=== PATIENT | male | born 1945 | race Caucasian/White ===

== ENCOUNTER 2019-12-24 10:06 | Inpatient (IN) ==
[2019-12-24] MEDS ORDERED: CeFAZolin Syr 2,000MG/20 ML 2,000 MG/20 ML SYRINGE IVPB ONE (10:21)
[2019-12-24] MEDS ORDERED: Ringers Solution, Lactated 1,000 ML IVC SCH (10:30)
[2019-12-24] MEDS ORDERED: Gabapentin 300 MG CAPSULE PO ONE (10:42)
[2019-12-24] MEDS ORDERED: Famotidine 20 MG/2 ML VIAL IVP ONE (10:42)
[2019-12-24] MEDS ORDERED: Acetaminophen IV 1,000 MG/100 ML INFUS..BTL IVPB ONE (10:42)
[2019-12-24] MEDS ORDERED: Dexamethasone 4 MG/ML VIAL ONE ×2 (10:43→11:35)
[2019-12-24] MEDS ORDERED: *HR* Succinylcholine 200 MG/10 ML VIAL IVP ONE (10:43)
[2019-12-24] MEDS ORDERED: Ondansetron 4 MG/2 ML VIAL ONE (10:43)
[2019-12-24] MEDS ORDERED: *HR* Propofol 200 MG/20 ML VIAL IVP ONE ×2 (10:43→16:53)
[2019-12-24] MEDS ORDERED: Lidocaine -MPF 2% 2 ML VIAL ONE ×2 (10:43→12:27)
[2019-12-24] MEDS ORDERED: *HR* Rocuronium Bromide 50 MG/5 ML VIAL ONE ×3 (10:43→14:25)
[2019-12-24] MEDS ORDERED: *HR* FentaNYL (PF) 100 MCG/2 ML VIAL ONE ×3 (10:43→13:44)
[2019-12-24] MEDS ORDERED: *HR* EPINEPHrine 1 MG/10 ML SYRINGE ONE (11:12)
[2019-12-24] MEDS ORDERED: *HR* Midazolam HCl 2 MG/2 ML VIAL ONE (12:17)
[2019-12-24] MEDS ORDERED: Heparin 1,000 UNITS/500 mL 0 ML ONE (12:38)
[2019-12-24] MEDS ORDERED: *HR* Vasopressin 20 UNIT/ML VIAL ONE (12:53)
[2019-12-24] MEDS ORDERED: Lidocaine Jelly 6ml 1 APPL/6 ML JEL.PF.APP ONE (12:53)
[2019-12-24] MEDS ORDERED: EPHEDrine 50 MG/ML VIAL ONE (13:37)
[2019-12-24] MEDS ORDERED: *HR* PHENYLEPHRINE 1,000 MCG/10 ML SYRINGE IVP ONE (14:48)
[2019-12-24] MEDS ORDERED: *HR* Dextrose 50 % in Water (Syg) 50 ML SYRINGE IVP PRN (17:16)
[2019-12-24] MEDS ORDERED: Ondansetron 4 MG/2 ML VIAL IVP PRN (17:16)
[2019-12-24] MEDS ORDERED: Morphine Sulfate 2 MG/ML SYRINGE IVP PRN (17:47)
[2019-12-24] MEDS: Insulin Human Regular 100 UNIT in 0.9 % Sodium Chloride 100 ML IVC SCH (18:25)
[2019-12-24] MEDS: 0.9 % Sodium Chloride 1,000 ML IVC SCH (18:26)
[2019-12-24] MEDS: Morphine PCA 30 MG/ 30 ML 30 ML PCA.VIAL IVC PRN (18:26)
[2019-12-24] MEDS ORDERED: 0.9 % Sodium Chloride 500 ML ONE (18:54)
[2019-12-24] MEDS: Ipratropium/Albuterol Neb 3 ML IH SCH ×2 (20:32→23:22)
[2019-12-24] MEDS: *HR* Heparin 5,000 UNIT/ML VIAL SQ SCH (23:11)
[2019-12-25 04:05] LABS: Hematocrit 36.6 % (37.5-50.1); Hemoglobin 12.6 g/dL (12.9-16.9); Mean Corpuscular HGB Conc 34.4 g/dL (31.6-35.5); Mean Corpuscular Hemoglobin 30.6 pg (28.0-33.3); Mean Corpuscular Volume 88.8 fL (83.0-100.0); Mean Platelet Volume 10.3 fL (9.4-12.4); Platelet Count 255 K/mcL (140-400); Red Blood Count 4.12 M/mcL (4.19-5.50); Red Cell Distribution Width 12.4 % (11.5-14.5); White Blood Count 14.3 K/mcL (4.3-11.1)
[2019-12-25] MEDS: Ipratropium/Albuterol Neb 3 ML IH SCH ×5 (04:13→20:16)
[2019-12-25 04:21] LABS: % Iron Saturation 7 % (20-55); BUN/Creatinine Ratio 26 (6-26); Blood Urea Nitrogen 19 mg/dL (8-23); Calcium 7.9 mg/dL (8.6-10.3); Carbon Dioxide 20 mEq/L (23-29); Chloride 109 mEq/L (98-107); Glucose 144 mg/dL (70-105); Iron 20 mcg/dL (65-175); Magnesium 1.7 mg/dL (1.6-2.6); Osmolality,Calculated 285 (280-300); Phosphorous 3.3 mg/dL (2.7-4.5); Potassium 3.8 mEq/L (3.5-5.1); Sodium 135 mEq/L (136-145); Transferrin 219 mg/dL (203-362); eGFR For African Americans > 60 (> 60); eGFR For Non-African Americans > 60 (> 60)
[2019-12-25] MEDS: *HR* Heparin 5,000 UNIT/ML VIAL SQ SCH ×3 (05:55→21:28)
[2019-12-25] MEDS ORDERED: Iron Sucrose Complex 400 MG in 0.9 % Sodium Chloride 250 ML IVPB ONE (07:03)
[2019-12-25] MEDS ORDERED: Potassium Chloride 40 MEQ, Lidocaine 1% 2 ML in 0.9 % Sodium Chloride 500 ML IVPB ONE (07:03)
[2019-12-25] MEDS ORDERED: 0.9 % Sodium Chloride 1,000 ML IVC SCH ×2 (07:17→12:33)
[2019-12-25] MEDS: Insulin Human Regular 100 UNIT in 0.9 % Sodium Chloride 100 ML IVC SCH (09:00)
[2019-12-25] MEDS: Pantoprazole 40 MG VIAL IVP SCH (09:50)
[2019-12-25] MEDS: Morphine PCA 30 MG/ 30 ML 30 ML PCA.VIAL IVC PRN (11:23)
[2019-12-25] MEDS: 0.9 % Sodium Chloride 1,000 ML IVC SCH (11:31)
[2019-12-25] MEDS ORDERED: Furosemide 20 MG/2 ML VIAL IVP ONE ×2 (12:32→12:37)
[2019-12-25 16:27] LABS: ABG Base Excess -4 mEq/L (-2 to 3); ABG HCO3 23 mEq/L (21-27); ABG Oxygen Saturation 85 % (95-98); ABG PCO2 49 mmHg (35-45); ABG PH 7.28 pH Units (7.32-7.45); ABG PO2 57 mmHg (85-104); ABG TCO2 25 mEq/L (20-26)
[2019-12-25 16:45] LABS: Basophils % 0.1 %; Hematocrit 37.6 % (37.5-50.1); Hemoglobin 12.8 g/dL (12.9-16.9); Immature Granulocytes % 0.6 % (0-4); Lymphocytes # 0.7 K/mcL (0.6-4.6); Lymphocytes % 3.6 %; Mean Platelet Volume 9.9 fL (9.4-12.4); Monocytes % 9.6 %; Neutrophils # 17.9 K/mcL (1.6-8.9); Platelet Count 311 K/mcL (140-400); Red Cell Distribution Width 12.8 % (11.5-14.5); Segmented Neutrophils % 86.1 %; White Blood Count 20.8 K/mcL (4.3-11.1)
[2019-12-25 17:04] LABS: BUN/Creatinine Ratio 29 (6-26); Blood Urea Nitrogen 23 mg/dL (8-23); Calcium 8.1 mg/dL (8.6-10.3); Carbon Dioxide 22 mEq/L (23-29); Chloride 109 mEq/L (98-107); Glucose 122 mg/dL (70-105); Osmolality,Calculated 289 (280-300); Potassium 4.4 mEq/L (3.5-5.1); Sodium 137 mEq/L (136-145); eGFR For African Americans > 60 (> 60); eGFR For Non-African Americans > 60 (> 60)
[2019-12-25] MEDS: Piperacillin/Tazobactam 3.375 GM in 0.9 % Sodium Chloride Mini Bag 100 ML IVPB SCH (17:27)
[2019-12-26] MEDS ORDERED: Piperacillin/Tazobactam 3.375 GM in 0.9 % Sodium Chloride Mini Bag 100 ML IVPB SCH
[2019-12-26] MEDS: Ipratropium/Albuterol Neb 3 ML IH SCH ×7 (00:02→23:26)
[2019-12-26] MEDS: Piperacillin/Tazobactam 3.375 GM in 0.9 % Sodium Chloride Mini Bag 100 ML IVPB SCH ×4 (00:04→23:57)
[2019-12-26 03:35] LABS: Hematocrit 34.7 % (37.5-50.1); Hemoglobin 11.6 g/dL (12.9-16.9); Mean Corpuscular HGB Conc 33.4 g/dL (31.6-35.5); Mean Corpuscular Hemoglobin 31.5 pg (28.0-33.3); Mean Corpuscular Volume 94.3 fL (83.0-100.0); Mean Platelet Volume 10.3 fL (9.4-12.4); Platelet Count 284 K/mcL (140-400); Red Blood Count 3.68 M/mcL (4.19-5.50); Red Cell Distribution Width 13.2 % (11.5-14.5); White Blood Count 18.7 K/mcL (4.3-11.1)
[2019-12-26 03:54] LABS: BUN/Creatinine Ratio 31 (6-26); Blood Urea Nitrogen 28 mg/dL (8-23); Calcium 8.3 mg/dL (8.6-10.3); Carbon Dioxide 24 mEq/L (23-29); Chloride 109 mEq/L (98-107); Glucose 163 mg/dL (70-105); Magnesium 2.8 mg/dL (1.6-2.6); Osmolality,Calculated 295 (280-300); Phosphorous 2.1 mg/dL (2.7-4.5); Potassium 4.4 mEq/L (3.5-5.1); Sodium 138 mEq/L (136-145); eGFR For African Americans > 60 (> 60); eGFR For Non-African Americans > 60 (> 60)
[2019-12-26 05:20] LABS: ABG Base Excess 0 mEq/L (-2 to 3); ABG HCO3 24 mEq/L (21-27); ABG Oxygen Saturation 91 % (95-98); ABG PCO2 36 mmHg (35-45); ABG PH 7.43 pH Units (7.32-7.45); ABG PO2 59 mmHg (85-104); ABG TCO2 25 mEq/L (20-26)
[2019-12-26] MEDS: *HR* Heparin 5,000 UNIT/ML VIAL SQ SCH ×3 (06:11→20:32)
[2019-12-26] MEDS ORDERED: Chloraseptic Spray 177 ML BOTTLE MM PRN (07:12)
[2019-12-26] MEDS: Pantoprazole 40 MG VIAL IVP SCH (08:18)
[2019-12-26] MEDS: Morphine PCA 30 MG/ 30 ML 30 ML PCA.VIAL IVC PRN (12:59)
[2019-12-26] MEDS ORDERED: Furosemide 20 MG/2 ML VIAL IVP ONE ×2 (17:30→17:31)
[2019-12-26] MEDS ORDERED: CLEAR EYES NATURAL TEARS 15 ML BOTTLE BOTH EYES PRN (17:49)
[2019-12-26] MEDS: FentaNYL (PF) 1,000 MCG in 0.9 % Sodium Chloride 80 ML IVC SCH (18:16)
[2019-12-26 18:18] LABS: ABG Base Excess -1 mEq/L (-2 to 3); ABG HCO3 25 mEq/L (21-27); ABG Oxygen Saturation 99 % (95-98); ABG PCO2 42 mmHg (35-45); ABG PH 7.38 pH Units (7.32-7.45); ABG PO2 120 mmHg (85-104); ABG TCO2 26 mEq/L (20-26); Blood Gas Modality AF; Blood Gas VT 450 cc
[2019-12-26] MEDS: Insulin Human Regular 100 UNIT in 0.9 % Sodium Chloride 100 ML IVC SCH (19:08)
[2019-12-26] MEDS: CLEAR EYES NATURAL TEARS 15 ML BOTTLE BOTH EYES SCH (20:31)
[2019-12-26] MEDS: Chlorhexidine Rinse 15 ML MOUTHWASH MM SCH (20:31)
[2019-12-27] MEDS: Insulin Human Regular 100 UNIT in 0.9 % Sodium Chloride 100 ML IVC SCH (00:03)
[2019-12-27] MEDS: CLEAR EYES NATURAL TEARS 15 ML BOTTLE BOTH EYES SCH ×7 (00:05→23:42)
[2019-12-27] MEDS: Ipratropium/Albuterol Neb 3 ML IH SCH ×6 (03:02→23:13)
[2019-12-27 03:14] LABS: Hematocrit 31.2 % (37.5-50.1); Hemoglobin 10.3 g/dL (12.9-16.9); Mean Corpuscular Hemoglobin 31.3 pg (28.0-33.3); Mean Corpuscular Volume 94.8 fL (83.0-100.0); Mean Platelet Volume 10.2 fL (9.4-12.4); Platelet Count 235 K/mcL (140-400); Red Blood Count 3.29 M/mcL (4.19-5.50); Red Cell Distribution Width 13.3 % (11.5-14.5); White Blood Count 15.3 K/mcL (4.3-11.1)
[2019-12-27 03:31] LABS: BUN/Creatinine Ratio 34 (6-26); Blood Urea Nitrogen 35 mg/dL (8-23); Calcium 8.2 mg/dL (8.6-10.3); Carbon Dioxide 25 mEq/L (23-29); Chloride 112 mEq/L (98-107); Glucose 127 mg/dL (70-105); Magnesium 2.8 mg/dL (1.6-2.6); Osmolality,Calculated 302 (280-300); Phosphorous 1.7 mg/dL (2.7-4.5); Potassium 3.9 mEq/L (3.5-5.1); Sodium 141 mEq/L (136-145); eGFR For African Americans > 60 (> 60); eGFR For Non-African Americans > 60 (> 60)
[2019-12-27 04:20] LABS: ABG Base Excess 0 mEq/L (-2 to 3); ABG HCO3 24 mEq/L (21-27); ABG Oxygen Saturation 88 % (95-98); ABG PCO2 37 mmHg (35-45); ABG PH 7.43 pH Units (7.32-7.45); ABG PO2 53 mmHg (85-104); ABG TCO2 26 mEq/L (20-26); Blood Gas Modality ASSIST CONTROL; Blood Gas VT 450 cc
[2019-12-27] MEDS: *HR* Heparin 5,000 UNIT/ML VIAL SQ SCH ×3 (04:57→20:23)
[2019-12-27] MEDS ORDERED: Isovue-370 500 ML BOTTLE IVP ONE (07:14)
[2019-12-27] MEDS: Piperacillin/Tazobactam 3.375 GM in 0.9 % Sodium Chloride Mini Bag 100 ML IVPB SCH ×3 (08:37→23:32)
[2019-12-27] MEDS: Chlorhexidine Rinse 15 ML MOUTHWASH MM SCH ×2 (08:39→20:22)
[2019-12-27] MEDS: Pantoprazole 40 MG VIAL IVP SCH (08:39)
[2019-12-27] MEDS: FentaNYL (PF) 1,000 MCG in 0.9 % Sodium Chloride 80 ML IVC SCH ×2 (16:32→23:44)
[2019-12-28] MEDS: Ipratropium/Albuterol Neb 3 ML IH SCH ×6 (03:04→23:47)
[2019-12-28] MEDS: CLEAR EYES NATURAL TEARS 15 ML BOTTLE BOTH EYES SCH ×5 (04:04→20:27)
[2019-12-28 04:15] LABS: Hematocrit 33.8 % (37.5-50.1); Hemoglobin 10.6 g/dL (12.9-16.9); Mean Corpuscular HGB Conc 31.4 g/dL (31.6-35.5); Mean Corpuscular Hemoglobin 30.7 pg (28.0-33.3); Mean Platelet Volume 10.2 fL (9.4-12.4); Platelet Count 271 K/mcL (140-400); Red Blood Count 3.45 M/mcL (4.19-5.50); Red Cell Distribution Width 13.7 % (11.5-14.5); White Blood Count 12.4 K/mcL (4.3-11.1)
[2019-12-28 04:31] LABS: BUN/Creatinine Ratio 45 (6-26); Blood Urea Nitrogen 41 mg/dL (8-23); Calcium 8.4 mg/dL (8.6-10.3); Carbon Dioxide 26 mEq/L (23-29); Chloride 112 mEq/L (98-107); Glucose 170 mg/dL (70-105); Magnesium 3.2 mg/dL (1.6-2.6); Osmolality,Calculated 312 (280-300); Phosphorous 3.1 mg/dL (2.7-4.5); Potassium 3.9 mEq/L (3.5-5.1); Sodium 144 mEq/L (136-145); eGFR For African Americans > 60 (> 60); eGFR For Non-African Americans > 60 (> 60)
[2019-12-28] MEDS: *HR* Heparin 5,000 UNIT/ML VIAL SQ SCH ×3 (04:48→20:22)
[2019-12-28 05:26] LABS: ABG Base Excess 1 mEq/L (-2 to 3); ABG HCO3 27 mEq/L (21-27); ABG Oxygen Saturation 92 % (95-98); ABG PCO2 49 mmHg (35-45); ABG PH 7.36 pH Units (7.32-7.45); ABG PO2 69 mmHg (85-104); ABG TCO2 29 mEq/L (20-26); Blood Gas Modality AF; Blood Gas VT 450 cc
[2019-12-28] MEDS: Piperacillin/Tazobactam 3.375 GM in 0.9 % Sodium Chloride Mini Bag 100 ML IVPB SCH ×2 (08:40→16:32)
[2019-12-28] MEDS: Pantoprazole 40 MG VIAL IVP SCH (08:40)
[2019-12-28] MEDS: Chlorhexidine Rinse 15 ML MOUTHWASH MM SCH ×2 (08:40→20:22)
[2019-12-28] MEDS: FentaNYL (PF) 1,000 MCG in 0.9 % Sodium Chloride 80 ML IVC SCH ×2 (09:38→17:53)
[2019-12-28] MEDS ORDERED: Iron Sucrose Complex 400 MG in 0.9 % Sodium Chloride 250 ML IVPB ONE (11:37)
[2019-12-28] MEDS: Metoclopramide 10 MG/2 ML VIAL IVP SCH ×2 (11:39→16:33)
[2019-12-28] MEDS: Insulin Human Regular 100 UNIT in 0.9 % Sodium Chloride 100 ML IVC SCH (20:37)
[2019-12-29] MEDS: Metoclopramide 10 MG/2 ML VIAL IVP SCH ×5 (00:20→23:19)
[2019-12-29] MEDS: CLEAR EYES NATURAL TEARS 15 ML BOTTLE BOTH EYES SCH ×7 (00:20→23:17)
[2019-12-29] MEDS: Piperacillin/Tazobactam 3.375 GM in 0.9 % Sodium Chloride Mini Bag 100 ML IVPB SCH ×4 (00:20→23:19)
[2019-12-29] MEDS: FentaNYL (PF) 1,000 MCG in 0.9 % Sodium Chloride 80 ML IVC SCH ×3 (01:22→18:21)
[2019-12-29] MEDS: Ipratropium/Albuterol Neb 3 ML IH SCH ×6 (03:21→23:05)
[2019-12-29 04:27] LABS: ABG Base Excess 2 mEq/L (-2 to 3); ABG HCO3 29 mEq/L (21-27); ABG Oxygen Saturation 87 % (95-98); ABG PCO2 58 mmHg (35-45); ABG PH 7.31 pH Units (7.32-7.45); ABG PO2 58 mmHg (85-104); ABG TCO2 31 mEq/L (20-26); Blood Gas Modality ASSIST CONTROL; Blood Gas VT 456 cc
[2019-12-29 04:37] LABS: Hematocrit 34.3 % (37.5-50.1); Hemoglobin 10.7 g/dL (12.9-16.9); Mean Corpuscular HGB Conc 31.2 g/dL (31.6-35.5); Mean Corpuscular Hemoglobin 30.8 pg (28.0-33.3); Mean Corpuscular Volume 98.8 fL (83.0-100.0); Mean Platelet Volume 9.8 fL (9.4-12.4); Platelet Count 287 K/mcL (140-400); Red Blood Count 3.47 M/mcL (4.19-5.50); Red Cell Distribution Width 13.8 % (11.5-14.5); White Blood Count 10.4 K/mcL (4.3-11.1)
[2019-12-29 04:56] LABS: BUN/Creatinine Ratio 44 (6-26); Blood Urea Nitrogen 34 mg/dL (8-23); Calcium 8.5 mg/dL (8.6-10.3); Carbon Dioxide 26 mEq/L (23-29); Chloride 114 mEq/L (98-107); Glucose 192 mg/dL (70-105); Magnesium 2.9 mg/dL (1.6-2.6); Osmolality,Calculated 317 (280-300); Phosphorous 3.6 mg/dL (2.7-4.5); Potassium 4.1 mEq/L (3.5-5.1); Sodium 147 mEq/L (136-145); eGFR For African Americans > 60 (> 60); eGFR For Non-African Americans > 60 (> 60)
[2019-12-29] MEDS: *HR* Heparin 5,000 UNIT/ML VIAL SQ SCH ×3 (05:07→20:16)
[2019-12-29] MEDS ORDERED: Furosemide 20 MG/2 ML VIAL IVP ONE ×2 (07:42→10:31)
[2019-12-29] MEDS: Pantoprazole 40 MG VIAL IVP SCH (08:24)
[2019-12-29] MEDS: Chlorhexidine Rinse 15 ML MOUTHWASH MM SCH ×2 (08:24→20:16)
[2019-12-29 13:51] LABS: BUN/Creatinine Ratio 37 (6-26); Blood Urea Nitrogen 30 mg/dL (8-23); Calcium 8.5 mg/dL (8.6-10.3); Carbon Dioxide 28 mEq/L (23-29); Chloride 113 mEq/L (98-107); Glucose 198 mg/dL (70-105); Osmolality,Calculated 318 (280-300); Potassium 3.8 mEq/L (3.5-5.1); Sodium 148 mEq/L (136-145); eGFR For African Americans > 60 (> 60); eGFR For Non-African Americans > 60 (> 60)
[2019-12-29] MEDS: Ringers Solution, Lactated 1,000 ML IVC SCH (14:20)
[2019-12-30] MEDS: Insulin Human Regular 100 UNIT in 0.9 % Sodium Chloride 100 ML IVC SCH ×3 (01:00→23:46)
[2019-12-30] MEDS: Ipratropium/Albuterol Neb 3 ML IH SCH ×6 (03:20→23:28)
[2019-12-30] MEDS: FentaNYL (PF) 1,000 MCG in 0.9 % Sodium Chloride 80 ML IVC SCH ×3 (03:40→21:16)
[2019-12-30 04:02] LABS: ABG Base Excess 7 mEq/L (-2 to 3); ABG HCO3 33 mEq/L (21-27); ABG Oxygen Saturation 89 % (95-98); ABG PCO2 54 mmHg (35-45); ABG PO2 58 mmHg (85-104); ABG TCO2 35 mEq/L (20-26); Blood Gas Modality ASSIST CONTROL; Blood Gas VT 450 cc
[2019-12-30] MEDS: CLEAR EYES NATURAL TEARS 15 ML BOTTLE BOTH EYES SCH ×5 (04:08→19:52)
[2019-12-30 04:28] LABS: Hematocrit 34.1 % (37.5-50.1); Hemoglobin 10.5 g/dL (12.9-16.9); Mean Corpuscular HGB Conc 30.8 g/dL (31.6-35.5); Mean Corpuscular Hemoglobin 30.7 pg (28.0-33.3); Mean Corpuscular Volume 99.7 fL (83.0-100.0); Platelet Count 242 K/mcL (140-400); Red Blood Count 3.42 M/mcL (4.19-5.50); Red Cell Distribution Width 13.9 % (11.5-14.5); White Blood Count 7.8 K/mcL (4.3-11.1)
[2019-12-30 04:43] LABS: BUN/Creatinine Ratio 38 (6-26); Blood Urea Nitrogen 30 mg/dL (8-23); Calcium 8.7 mg/dL (8.6-10.3); Carbon Dioxide 31 mEq/L (23-29); Chloride 114 mEq/L (98-107); Glucose 194 mg/dL (70-105); Magnesium 2.6 mg/dL (1.6-2.6); Osmolality,Calculated 321 (280-300); Potassium 3.9 mEq/L (3.5-5.1); Sodium 150 mEq/L (136-145); eGFR For African Americans > 60 (> 60); eGFR For Non-African Americans > 60 (> 60)
[2019-12-30] MEDS: *HR* Heparin 5,000 UNIT/ML VIAL SQ SCH ×3 (05:07→19:53)
[2019-12-30] MEDS: Metoclopramide 10 MG/2 ML VIAL IVP SCH ×3 (05:07→17:36)
[2019-12-30] MEDS: Pantoprazole 40 MG VIAL IVP SCH (08:32)
[2019-12-30] MEDS: Piperacillin/Tazobactam 3.375 GM in 0.9 % Sodium Chloride Mini Bag 100 ML IVPB SCH ×2 (08:32→15:23)
[2019-12-30] MEDS: Chlorhexidine Rinse 15 ML MOUTHWASH MM SCH ×2 (08:32→19:53)
[2019-12-30] MEDS: D5% in Water 1,000 ML IVC SCH (09:33)
[2019-12-30] MEDS: Furosemide 20 MG/2 ML VIAL IVP ONE (09:33)
[2019-12-30 09:37] LABS: ABG Base Excess 8 mEq/L (-2 to 3); ABG HCO3 34 mEq/L (21-27); ABG Oxygen Saturation 93 % (95-98); ABG PCO2 55 mmHg (35-45); ABG PH 7.39 pH Units (7.32-7.45); ABG PO2 70 mmHg (85-104); ABG TCO2 35 mEq/L (20-26); Blood Gas Modality AF; Blood Gas VT 500 cc
[2019-12-31] MEDS: Metoclopramide 10 MG/2 ML VIAL IVP SCH ×4 (00:13→16:52)
[2019-12-31] MEDS: Piperacillin/Tazobactam 3.375 GM in 0.9 % Sodium Chloride Mini Bag 100 ML IVPB SCH ×3 (00:13→15:28)
[2019-12-31] MEDS: CLEAR EYES NATURAL TEARS 15 ML BOTTLE BOTH EYES SCH ×6 (00:14→20:22)
[2019-12-31] MEDS: Ipratropium/Albuterol Neb 3 ML IH SCH ×10 (03:42→23:22)
[2019-12-31 04:17] LABS: Hematocrit 31.8 % (37.5-50.1); Hemoglobin 9.9 g/dL (12.9-16.9); Mean Corpuscular HGB Conc 31.1 g/dL (31.6-35.5); Mean Corpuscular Hemoglobin 30.7 pg (28.0-33.3); Mean Corpuscular Volume 98.8 fL (83.0-100.0); Mean Platelet Volume 10.2 fL (9.4-12.4); Platelet Count 233 K/mcL (140-400); Red Blood Count 3.22 M/mcL (4.19-5.50); Red Cell Distribution Width 13.6 % (11.5-14.5); White Blood Count 8.7 K/mcL (4.3-11.1)
[2019-12-31 04:33] LABS: BUN/Creatinine Ratio 39 (6-26); Blood Urea Nitrogen 28 mg/dL (8-23); Calcium 8.5 mg/dL (8.6-10.3); Carbon Dioxide 29 mEq/L (23-29); Chloride 112 mEq/L (98-107); Glucose 151 mg/dL (70-105); Magnesium 2.4 mg/dL (1.6-2.6); Osmolality,Calculated 310 (280-300); Phosphorous 3.5 mg/dL (2.7-4.5); Potassium 3.8 mEq/L (3.5-5.1); Sodium 146 mEq/L (136-145); eGFR For African Americans > 60 (> 60); eGFR For Non-African Americans > 60 (> 60)
[2019-12-31] MEDS: D5% in Water 1,000 ML IVC SCH ×2 (04:50→23:08)
[2019-12-31 05:18] LABS: ABG Base Excess 6 mEq/L (-2 to 3); ABG HCO3 33 mEq/L (21-27); ABG Oxygen Saturation 88 % (95-98); ABG PCO2 59 mmHg (35-45); ABG PH 7.36 pH Units (7.32-7.45); ABG PO2 59 mmHg (85-104); ABG TCO2 35 mEq/L (20-26); Blood Gas Modality AF; Blood Gas VT 500 cc
[2019-12-31] MEDS: *HR* Heparin 5,000 UNIT/ML VIAL SQ SCH ×3 (05:48→21:19)
[2019-12-31] MEDS: Pantoprazole 40 MG VIAL IVP SCH (07:56)
[2019-12-31] MEDS: Chlorhexidine Rinse 15 ML MOUTHWASH MM SCH ×2 (07:56→20:22)
[2019-12-31] MEDS: Insulin Human Regular 100 UNIT in 0.9 % Sodium Chloride 100 ML IVC SCH ×2 (10:20→19:43)
[2019-12-31] MEDS: Budesonide/Formoterol 160/4.5 1 PUFF INH IH SCH ×2 (11:19→19:42)
[2019-12-31] MEDS ORDERED: Ipratropium/Albuterol Neb 3 ML ONE (16:14)
[2019-12-31] MEDS: FentaNYL (PF) 1,000 MCG in 0.9 % Sodium Chloride 80 ML IVC SCH (20:13)
[2019-12-31] MEDS: Ringers Solution, Lactated 1,000 ML IVC SCH (20:16)
[2020-01-01] MEDS: CLEAR EYES NATURAL TEARS 15 ML BOTTLE BOTH EYES SCH ×6 (00:07→20:30)
[2020-01-01] MEDS: Piperacillin/Tazobactam 3.375 GM in 0.9 % Sodium Chloride Mini Bag 100 ML IVPB SCH ×3 (00:10→16:56)
[2020-01-01] MEDS: FentaNYL (PF) 1,000 MCG in 0.9 % Sodium Chloride 80 ML IVC SCH ×2 (00:11→20:24)
[2020-01-01] MEDS: Metoclopramide 10 MG/2 ML VIAL IVP SCH ×4 (00:12→16:56)
[2020-01-01] MEDS: Ipratropium/Albuterol Neb 3 ML IH SCH ×10 (01:17→23:52)
[2020-01-01] MEDS: Insulin Human Regular 100 UNIT in 0.9 % Sodium Chloride 100 ML IVC SCH ×2 (03:10→13:30)
[2020-01-01 03:20] LABS: Hematocrit 32.4 % (37.5-50.1); Hemoglobin 10.3 g/dL (12.9-16.9); Mean Corpuscular HGB Conc 31.8 g/dL (31.6-35.5); Mean Corpuscular Volume 97.6 fL (83.0-100.0); Mean Platelet Volume 10.3 fL (9.4-12.4); Platelet Count 228 K/mcL (140-400); Red Blood Count 3.32 M/mcL (4.19-5.50); Red Cell Distribution Width 13.4 % (11.5-14.5); White Blood Count 8.6 K/mcL (4.3-11.1)
[2020-01-01 03:40] LABS: BUN/Creatinine Ratio 36 (6-26); Blood Urea Nitrogen 21 mg/dL (8-23); Calcium 8.2 mg/dL (8.6-10.3); Carbon Dioxide 27 mEq/L (23-29); Chloride 108 mEq/L (98-107); Glucose 140 mg/dL (70-105); Magnesium 2.2 mg/dL (1.6-2.6); Osmolality,Calculated 299 (280-300); Phosphorous 2.1 mg/dL (2.7-4.5); Potassium 3.2 mEq/L (3.5-5.1); Sodium 142 mEq/L (136-145); eGFR For African Americans > 60 (> 60); eGFR For Non-African Americans > 60 (> 60)
[2020-01-01 04:50] LABS: ABG Base Excess 7 mEq/L (-2 to 3); ABG HCO3 31 mEq/L (21-27); ABG Oxygen Saturation 90 % (95-98); ABG PCO2 45 mmHg (35-45); ABG PH 7.45 pH Units (7.32-7.45); ABG PO2 56 mmHg (85-104); ABG TCO2 33 mEq/L (20-26); Blood Gas Modality AF; Blood Gas VT 500 cc
[2020-01-01] MEDS: *HR* Heparin 5,000 UNIT/ML VIAL SQ SCH ×3 (06:03→20:12)
[2020-01-01] MEDS: Dexmedetomidine HCl 400 MCG/100 ML MLS IVC SCH ×3 (07:31→19:14)
[2020-01-01] MEDS: Budesonide/Formoterol 160/4.5 1 PUFF INH IH SCH ×2 (07:49→19:44)
[2020-01-01] MEDS: Chlorhexidine Rinse 15 ML MOUTHWASH MM SCH ×2 (08:54→20:12)
[2020-01-01] MEDS: Pantoprazole 40 MG VIAL IVP SCH (08:54)
[2020-01-01] MEDS ORDERED: Potassium Phosphate 44 MEQ in 0.9 % Sodium Chloride 250 ML IVPB ONE (09:06)
[2020-01-01] MEDS ORDERED: Furosemide 20 MG/2 ML VIAL IVP ONE ×2 (09:18→16:12)
[2020-01-01] MEDS: D5% in Water 1,000 ML IVC SCH (10:07)
[2020-01-01] MEDS: Bisacodyl 10 MG RECTAL SUPPOSITORY RC SCH (10:30)
[2020-01-01] MEDS ORDERED: Haloperidol Lactate 5 MG/ML VIAL IVP ONE (14:41)
[2020-01-01] MEDS: Furosemide 20 MG/2 ML VIAL IVP ONE (16:15)
[2020-01-01] MEDS: QUEtiapine Fumarate 25 MG TABLET PO SCH (20:12)
[2020-01-01] MEDS: Docusate Oral Soln 100 MG/10 ML UDC GTUBE SCH (20:12)
[2020-01-01] MEDS ORDERED: Furosemide 40 MG/4 ML VIAL IVP ONE (21:57)
[2020-01-01] MEDS: Insulin Human Regular 250 UNIT in 0.9 % Sodium Chloride 250 ML IVC SCH (22:13)
[2020-01-02] MEDS: Dexmedetomidine HCl 400 MCG/100 ML MLS IVC SCH ×4 (00:06→20:13)
[2020-01-02] MEDS: Metoclopramide 10 MG/2 ML VIAL IVP SCH ×5 (00:07→23:45)
[2020-01-02] MEDS: Piperacillin/Tazobactam 3.375 GM in 0.9 % Sodium Chloride Mini Bag 100 ML IVPB SCH ×4 (00:10→23:45)
[2020-01-02] MEDS: CLEAR EYES NATURAL TEARS 15 ML BOTTLE BOTH EYES SCH ×3 (00:15→07:53)
[2020-01-02] MEDS: D5% in Water 1,000 ML IVC SCH (02:15)
[2020-01-02] MEDS: Ipratropium/Albuterol Neb 3 ML IH SCH ×6 (03:52→23:57)
[2020-01-02 04:28] LABS: ABG Base Excess 5 mEq/L (-2 to 3); ABG HCO3 27 mEq/L (21-27); ABG Oxygen Saturation 94 % (95-98); ABG PCO2 32 mmHg (35-45); ABG PH 7.53 pH Units (7.32-7.45); ABG PO2 62 mmHg (85-104); ABG TCO2 28 mEq/L (20-26)
[2020-01-02 04:46] LABS: Hematocrit 31.6 % (37.5-50.1); Hemoglobin 10.8 g/dL (12.9-16.9); Mean Corpuscular HGB Conc 34.2 g/dL (31.6-35.5); Mean Corpuscular Hemoglobin 31.7 pg (28.0-33.3); Mean Corpuscular Volume 92.7 fL (83.0-100.0); Mean Platelet Volume 10.5 fL (9.4-12.4); Monocytes # 0.8 K/mcL (0.0-1.3); Platelet Count 216 K/mcL (140-400); Red Blood Count 3.41 M/mcL (4.19-5.50); Red Cell Distribution Width 12.7 % (11.5-14.5); White Blood Count 10.4 K/mcL (4.3-11.1)
[2020-01-02 05:00] LABS: BUN/Creatinine Ratio 23 (6-26); Blood Urea Nitrogen 14 mg/dL (8-23); Calcium 8.4 mg/dL (8.6-10.3); Carbon Dioxide 26 mEq/L (23-29); Chloride 104 mEq/L (98-107); Glucose 186 mg/dL (70-105); Osmolality,Calculated 289 (280-300); Potassium 3.1 mEq/L (3.5-5.1); Sodium 137 mEq/L (136-145); eGFR For African Americans > 60 (> 60); eGFR For Non-African Americans > 60 (> 60)
[2020-01-02 05:18] LABS: Lymphocytes # 1.7 K/mcL (0.6-4.6); Neutrophils # 7.9 K/mcL (1.6-8.9); Platelet Estimate Normal (Normal)
[2020-01-02] MEDS: *HR* Heparin 5,000 UNIT/ML VIAL SQ SCH ×3 (06:16→22:12)
[2020-01-02 06:18] LABS: Phosphorous 2.2 mg/dL (2.7-4.5)
[2020-01-02] MEDS: Budesonide/Formoterol 160/4.5 1 PUFF INH IH SCH ×2 (07:29→19:58)
[2020-01-02] MEDS: Potassium Chloride Elixir 20 MEQ/15 ML UDC PO SCH ×2 (08:00→20:42)
[2020-01-02] MEDS: Pantoprazole 40 MG VIAL IVP SCH (08:00)
[2020-01-02] MEDS: Bisacodyl 10 MG RECTAL SUPPOSITORY RC SCH (08:00)
[2020-01-02] MEDS: Docusate Oral Soln 100 MG/10 ML UDC GTUBE SCH ×2 (08:00→20:42)
[2020-01-02] MEDS: QUEtiapine Fumarate 25 MG TABLET PO SCH ×2 (08:00→20:43)
[2020-01-02] MEDS: Chlorhexidine Rinse 15 ML MOUTHWASH MM SCH ×2 (08:00→20:43)
[2020-01-02] MEDS ORDERED: Potassium Phosphate 44 MEQ in 0.9 % Sodium Chloride 250 ML IVPB ONE (08:57)
[2020-01-02] MEDS: *HR* OxyCODONE Oral Soln 5 MG/5 ML UD.LIQ GTUBE PRN ×2 (09:58→21:26)
[2020-01-02] MEDS ORDERED: Furosemide 20 MG/2 ML VIAL IVP ONE (15:00)
[2020-01-02] MEDS: Insulin Human Regular 250 UNIT in 0.9 % Sodium Chloride 250 ML IVC SCH (22:43)
[2020-01-03] MEDS: *HR* OxyCODONE Oral Soln 5 MG/5 ML UD.LIQ GTUBE PRN ×2 (01:59→20:06)
[2020-01-03 03:47] LABS: Basophils # 0.1 K/mcL (0.0-0.2); Basophils % 0.6 %; Eosinophils # 0.3 K/mcL (0.0-0.6); Eosinophils % 2.9 %; Hematocrit 32.2 % (37.5-50.1); Hemoglobin 10.5 g/dL (12.9-16.9); Immature Granulocytes % 5.9 % (0-4); Lymphocytes # 1.3 K/mcL (0.6-4.6); Lymphocytes % 15.1 %; Mean Corpuscular HGB Conc 32.6 g/dL (31.6-35.5); Mean Corpuscular Hemoglobin 30.4 pg (28.0-33.3); Mean Corpuscular Volume 93.3 fL (83.0-100.0); Mean Platelet Volume 10.3 fL (9.4-12.4); Monocytes % 11.4 %; Neutrophils # 5.5 K/mcL (1.6-8.9); Platelet Count 216 K/mcL (140-400); Red Blood Count 3.45 M/mcL (4.19-5.50); Red Cell Distribution Width 13.2 % (11.5-14.5); Segmented Neutrophils % 64.1 %; White Blood Count 8.6 K/mcL (4.3-11.1)
[2020-01-03] MEDS: Ipratropium/Albuterol Neb 3 ML IH SCH ×6 (03:50→23:39)
[2020-01-03] MEDS: Dexmedetomidine HCl 400 MCG/100 ML MLS IVC SCH (04:02)
[2020-01-03 04:06] LABS: BUN/Creatinine Ratio 28 (6-26); Blood Urea Nitrogen 19 mg/dL (8-23); Calcium 8.2 mg/dL (8.6-10.3); Carbon Dioxide 24 mEq/L (23-29); Chloride 107 mEq/L (98-107); Glucose 157 mg/dL (70-105); Magnesium 2.4 mg/dL (1.6-2.6); Osmolality,Calculated 292 (280-300); Phosphorous 3.4 mg/dL (2.7-4.5); Potassium 3.6 mEq/L (3.5-5.1); Sodium 138 mEq/L (136-145); eGFR For African Americans > 60 (> 60); eGFR For Non-African Americans > 60 (> 60)
[2020-01-03 04:29] LABS: Platelet Estimate Normal (Normal); Toxic Vacuolation Present (Not Present)
[2020-01-03] MEDS: Insulin Human Regular 250 UNIT in 0.9 % Sodium Chloride 250 ML IVC SCH (04:31)
[2020-01-03] MEDS: Metoclopramide 10 MG/2 ML VIAL IVP SCH ×3 (05:37→17:16)
[2020-01-03] MEDS: *HR* Heparin 5,000 UNIT/ML VIAL SQ SCH ×3 (05:37→21:27)
[2020-01-03] MEDS: Budesonide/Formoterol 160/4.5 1 PUFF INH IH SCH ×2 (07:16→19:43)
[2020-01-03] MEDS: Piperacillin/Tazobactam 3.375 GM in 0.9 % Sodium Chloride Mini Bag 100 ML IVPB SCH ×2 (09:30→14:31)
[2020-01-03] MEDS: Chlorhexidine Rinse 15 ML MOUTHWASH MM SCH ×2 (09:30→20:06)
[2020-01-03] MEDS: Potassium Chloride Elixir 20 MEQ/15 ML UDC PO SCH (09:31)
[2020-01-03] MEDS: QUEtiapine Fumarate 25 MG TABLET PO SCH ×2 (09:31→20:06)
[2020-01-03] MEDS: Bisacodyl 10 MG RECTAL SUPPOSITORY RC SCH (09:31)
[2020-01-03] MEDS: Pantoprazole 40 MG VIAL IVP SCH (09:31)
[2020-01-03] MEDS: Docusate Oral Soln 100 MG/10 ML UDC GTUBE SCH ×2 (09:31→20:06)
[2020-01-03] MEDS: D5% in Water 1,000 ML IVC SCH (17:16)
[2020-01-04] MEDS: Ipratropium/Albuterol Neb 3 ML IH SCH ×6 (03:31→23:47)
[2020-01-04] MEDS: *HR* OxyCODONE Oral Soln 5 MG/5 ML UD.LIQ GTUBE PRN ×3 (05:06→21:12)
[2020-01-04] MEDS: *HR* Heparin 5,000 UNIT/ML VIAL SQ SCH ×3 (05:06→21:12)
[2020-01-04] MEDS: Metoclopramide 10 MG/2 ML VIAL IVP SCH ×2 (05:06)
[2020-01-04] MEDS: Budesonide/Formoterol 160/4.5 1 PUFF INH IH SCH ×2 (07:33→20:29)
[2020-01-04] MEDS: Docusate Oral Soln 100 MG/10 ML UDC GTUBE SCH ×2 (08:41→21:11)
[2020-01-04] MEDS: Piperacillin/Tazobactam 3.375 GM in 0.9 % Sodium Chloride Mini Bag 100 ML IVPB SCH ×3 (08:41→15:10)
[2020-01-04] MEDS: Chlorhexidine Rinse 15 ML MOUTHWASH MM SCH ×2 (08:41→21:12)
[2020-01-04] MEDS: Bisacodyl 10 MG RECTAL SUPPOSITORY RC SCH (08:42)
[2020-01-04] MEDS: Insulin Human Regular 250 UNIT in 0.9 % Sodium Chloride 250 ML IVC SCH (11:00)
[2020-01-04] MEDS: D5% in Water 1,000 ML IVC SCH (22:14)
[2020-01-05] MEDS: Ipratropium/Albuterol Neb 3 ML IH SCH ×6 (03:47→23:49)
[2020-01-05 04:20] LABS: Hematocrit 35.8 % (37.5-50.1); Mean Corpuscular HGB Conc 33.8 g/dL (31.6-35.5); Mean Corpuscular Hemoglobin 31.4 pg (28.0-33.3); Mean Platelet Volume 11.1 fL (9.4-12.4); Platelet Count 267 K/mcL (140-400); Red Blood Count 3.85 M/mcL (4.19-5.50); Red Cell Distribution Width 13.8 % (11.5-14.5)
[2020-01-05 04:24] LABS: Hemoglobin 12.1 g/dL (12.9-16.9); White Blood Count 13.9 K/mcL (4.3-11.1)
[2020-01-05 04:25] LABS: BUN/Creatinine Ratio 33 (6-26); Blood Urea Nitrogen 22 mg/dL (8-23); Calcium 8.8 mg/dL (8.6-10.3); Carbon Dioxide 22 mEq/L (23-29); Chloride 105 mEq/L (98-107); Glucose 171 mg/dL (70-105); Magnesium 2.5 mg/dL (1.6-2.6); Osmolality,Calculated 289 (280-300); Potassium 3.7 mEq/L (3.5-5.1); Sodium 136 mEq/L (136-145); eGFR For African Americans > 60 (> 60); eGFR For Non-African Americans > 60 (> 60)
[2020-01-05] MEDS: *HR* Heparin 5,000 UNIT/ML VIAL SQ SCH ×3 (05:47→21:07)
[2020-01-05] MEDS: Budesonide/Formoterol 160/4.5 1 PUFF INH IH SCH ×2 (07:48→20:26)
[2020-01-05] MEDS: Piperacillin/Tazobactam 3.375 GM in 0.9 % Sodium Chloride Mini Bag 100 ML IVPB SCH ×3 (08:40→16:27)
[2020-01-05] MEDS: Chlorhexidine Rinse 15 ML MOUTHWASH MM SCH ×2 (08:41→21:07)
[2020-01-05] MEDS: Docusate Oral Soln 100 MG/10 ML UDC GTUBE SCH ×3 (08:41→21:07)
[2020-01-05] MEDS: Bisacodyl 10 MG RECTAL SUPPOSITORY RC SCH ×2 (08:41→08:47)
[2020-01-05] MEDS: Insulin Human Regular 250 UNIT in 0.9 % Sodium Chloride 250 ML IVC SCH (14:14)
[2020-01-05] MEDS: D5% in Water 1,000 ML IVC SCH (18:27)
[2020-01-05] MEDS ORDERED: Acetaminophen IV 1,000 MG/100 ML INFUS..BTL IVPB ONE (23:50)
[2020-01-06] MEDS: Piperacillin/Tazobactam 3.375 GM in 0.9 % Sodium Chloride Mini Bag 100 ML IVPB SCH ×4 (00:04→23:59)
[2020-01-06] MEDS: D5% in Water 1,000 ML IVC SCH (03:27)
[2020-01-06] MEDS: Ipratropium/Albuterol Neb 3 ML IH SCH ×6 (03:50→23:50)
[2020-01-06 04:45] LABS: Hematocrit 35.1 % (37.5-50.1); Hemoglobin 11.8 g/dL (12.9-16.9); Mean Corpuscular HGB Conc 33.6 g/dL (31.6-35.5); Mean Corpuscular Hemoglobin 30.7 pg (28.0-33.3); Mean Corpuscular Volume 91.4 fL (83.0-100.0); Mean Platelet Volume 10.8 fL (9.4-12.4); Platelet Count 261 K/mcL (140-400); Red Blood Count 3.84 M/mcL (4.19-5.50); Red Cell Distribution Width 13.7 % (11.5-14.5)
[2020-01-06 05:04] LABS: BUN/Creatinine Ratio 34 (6-26); Blood Urea Nitrogen 23 mg/dL (8-23); Calcium 8.6 mg/dL (8.6-10.3); Carbon Dioxide 19 mEq/L (23-29); Chloride 105 mEq/L (98-107); Glucose 152 mg/dL (70-105); Magnesium 2.3 mg/dL (1.6-2.6); Osmolality,Calculated 283 (280-300); Potassium 3.7 mEq/L (3.5-5.1); Sodium 133 mEq/L (136-145); eGFR For African Americans > 60 (> 60); eGFR For Non-African Americans > 60 (> 60)
[2020-01-06] MEDS: *HR* Heparin 5,000 UNIT/ML VIAL SQ SCH ×3 (05:46→20:53)
[2020-01-06] MEDS: Budesonide/Formoterol 160/4.5 1 PUFF INH IH SCH ×2 (08:19→20:33)
[2020-01-06] MEDS: Bisacodyl 10 MG RECTAL SUPPOSITORY RC SCH (08:29)
[2020-01-06] MEDS: Docusate Oral Soln 100 MG/10 ML UDC GTUBE SCH ×2 (08:30→20:53)
[2020-01-06] MEDS: Chlorhexidine Rinse 15 ML MOUTHWASH MM SCH ×2 (08:30→20:53)
[2020-01-06] MEDS ORDERED: Fluconazole 200 MG/100 ML 200 MG/100 ML BAG IVPB SCH (09:00)
[2020-01-06] MEDS ORDERED: Fluconazole 200 MG/100 ML 200 MG/100 ML BAG IVPB ONE (12:00)
[2020-01-06] MEDS ORDERED: Fluconazole 400 MG/200 ML 400 MG/200 ML BAG IVPB SCH (13:00)
[2020-01-06] MEDS: Insulin Human Regular 250 UNIT in 0.9 % Sodium Chloride 250 ML IVC SCH (16:07)
[2020-01-07] MEDS: Ipratropium/Albuterol Neb 3 ML IH SCH ×6 (03:44→23:52)
[2020-01-07 04:58] LABS: Hematocrit 33.2 % (37.5-50.1); Hemoglobin 11.2 g/dL (12.9-16.9); Mean Corpuscular HGB Conc 33.7 g/dL (31.6-35.5); Mean Corpuscular Hemoglobin 31.5 pg (28.0-33.3); Mean Corpuscular Volume 93.5 fL (83.0-100.0); Mean Platelet Volume 10.9 fL (9.4-12.4); Platelet Count 234 K/mcL (140-400); Red Blood Count 3.55 M/mcL (4.19-5.50); Red Cell Distribution Width 13.8 % (11.5-14.5); White Blood Count 12.1 K/mcL (4.3-11.1)
[2020-01-07 05:19] LABS: BUN/Creatinine Ratio 31 (6-26); Blood Urea Nitrogen 22 mg/dL (8-23); Calcium 8.5 mg/dL (8.6-10.3); Carbon Dioxide 20 mEq/L (23-29); Chloride 106 mEq/L (98-107); Glucose 161 mg/dL (70-105); Magnesium 2.3 mg/dL (1.6-2.6); Osmolality,Calculated 289 (280-300); Potassium 3.6 mEq/L (3.5-5.1); Sodium 136 mEq/L (136-145); eGFR For African Americans > 60 (> 60); eGFR For Non-African Americans > 60 (> 60)
[2020-01-07] MEDS: *HR* Heparin 5,000 UNIT/ML VIAL SQ SCH ×3 (06:07→20:56)
[2020-01-07] MEDS: Bisacodyl 10 MG RECTAL SUPPOSITORY RC SCH (07:35)
[2020-01-07] MEDS: Docusate Oral Soln 100 MG/10 ML UDC GTUBE SCH (07:35)
[2020-01-07] MEDS: Budesonide/Formoterol 160/4.5 1 PUFF INH IH SCH ×2 (07:38→20:20)
[2020-01-07] MEDS: Chlorhexidine Rinse 15 ML MOUTHWASH MM SCH (07:49)
[2020-01-07] MEDS ORDERED: Ondansetron 4 MG/2 ML VIAL IVP PRN (10:35)
[2020-01-07] MEDS ORDERED: *HR* Dextrose 50 % in Water (Syg) 50 ML SYRINGE IVP PRN (10:35)
[2020-01-07] MEDS: Insulin Human Regular 100 UNIT in 0.9 % Sodium Chloride 100 ML IVC SCH (10:48)
[2020-01-07] MEDS: Fluconazole 400 MG/200 ML 400 MG/200 ML BAG IVPB SCH (12:00)
[2020-01-07] MEDS: *HR* OxyCODONE Oral Soln 5 MG/5 ML UD.LIQ GTUBE PRN (16:54)
[2020-01-08] MEDS: Ipratropium/Albuterol Neb 3 ML IH SCH ×5 (03:39→20:16)
[2020-01-08 04:12] LABS: Hematocrit 33.9 % (37.5-50.1); Hemoglobin 11.3 g/dL (12.9-16.9); Mean Corpuscular HGB Conc 33.3 g/dL (31.6-35.5); Mean Corpuscular Hemoglobin 31.1 pg (28.0-33.3); Mean Corpuscular Volume 93.4 fL (83.0-100.0); Mean Platelet Volume 10.6 fL (9.4-12.4); Platelet Count 217 K/mcL (140-400); Red Blood Count 3.63 M/mcL (4.19-5.50); Red Cell Distribution Width 13.9 % (11.5-14.5); White Blood Count 9.7 K/mcL (4.3-11.1)
[2020-01-08 04:30] LABS: BUN/Creatinine Ratio 31 (6-26); Blood Urea Nitrogen 19 mg/dL (8-23); Calcium 8.7 mg/dL (8.6-10.3); Carbon Dioxide 23 mEq/L (23-29); Chloride 104 mEq/L (98-107); Glucose 165 mg/dL (70-105); Magnesium 2.3 mg/dL (1.6-2.6); Osmolality,Calculated 284 (280-300); Potassium 3.9 mEq/L (3.5-5.1); Sodium 134 mEq/L (136-145); eGFR For African Americans > 60 (> 60); eGFR For Non-African Americans > 60 (> 60)
[2020-01-08] MEDS: *HR* Heparin 5,000 UNIT/ML VIAL SQ SCH ×3 (05:13→21:19)
[2020-01-08] MEDS: Budesonide/Formoterol 160/4.5 1 PUFF INH IH SCH ×2 (07:33→20:35)
[2020-01-08] MEDS: Bisacodyl 10 MG RECTAL SUPPOSITORY RC SCH (07:37)
[2020-01-08] MEDS: *HR* OxyCODONE Oral Soln 5 MG/5 ML UD.LIQ GTUBE PRN ×2 (10:31→21:18)
[2020-01-08] MEDS: Fluconazole 400 MG/200 ML 400 MG/200 ML BAG IVPB SCH (13:08)
[2020-01-08] MEDS: Insulin Human Regular 100 UNIT in 0.9 % Sodium Chloride 100 ML IVC SCH (20:28)
[2020-01-09] MEDS: Ipratropium/Albuterol Neb 3 ML IH SCH ×7 (00:38→23:50)
[2020-01-09 02:14] LABS: Hematocrit 34.7 % (37.5-50.1); Hemoglobin 11.2 g/dL (12.9-16.9); Mean Corpuscular HGB Conc 32.3 g/dL (31.6-35.5); Mean Corpuscular Hemoglobin 30.7 pg (28.0-33.3); Mean Corpuscular Volume 95.1 fL (83.0-100.0); Mean Platelet Volume 11.3 fL (9.4-12.4); Platelet Count 265 K/mcL (140-400); Red Blood Count 3.65 M/mcL (4.19-5.50); Red Cell Distribution Width 14.2 % (11.5-14.5); White Blood Count 8.7 K/mcL (4.3-11.1)
[2020-01-09 02:32] LABS: BUN/Creatinine Ratio 37 (6-26); Blood Urea Nitrogen 22 mg/dL (8-23); Calcium 8.8 mg/dL (8.6-10.3); Carbon Dioxide 22 mEq/L (23-29); Chloride 103 mEq/L (98-107); Glucose 154 mg/dL (70-105); Magnesium 2.3 mg/dL (1.6-2.6); Osmolality,Calculated 286 (280-300); Potassium 3.9 mEq/L (3.5-5.1); Sodium 135 mEq/L (136-145); eGFR For African Americans > 60 (> 60); eGFR For Non-African Americans > 60 (> 60)
[2020-01-09] MEDS: *HR* OxyCODONE Oral Soln 5 MG/5 ML UD.LIQ GTUBE PRN ×3 (03:03→20:41)
[2020-01-09] MEDS: *HR* Heparin 5,000 UNIT/ML VIAL SQ SCH ×3 (06:13→20:40)
[2020-01-09] MEDS: Bisacodyl 10 MG RECTAL SUPPOSITORY RC SCH (07:21)
[2020-01-09] MEDS: Budesonide/Formoterol 160/4.5 1 PUFF INH IH SCH ×2 (08:28→19:53)
[2020-01-09] MEDS: Fluconazole 400 MG/200 ML 400 MG/200 ML BAG IVPB SCH (11:50)
[2020-01-09] MEDS: Insulin Human Regular 100 UNIT in 0.9 % Sodium Chloride 100 ML IVC SCH (15:33)
[2020-01-10] MEDS: Insulin Human Regular 100 UNIT in 0.9 % Sodium Chloride 100 ML IVC SCH (00:10)
[2020-01-10] MEDS: *HR* OxyCODONE Oral Soln 5 MG/5 ML UD.LIQ GTUBE PRN (03:56)
[2020-01-10] MEDS: Ipratropium/Albuterol Neb 3 ML IH SCH ×5 (04:04→19:47)
[2020-01-10] MEDS: *HR* Heparin 5,000 UNIT/ML VIAL SQ SCH ×3 (06:19→20:28)
[2020-01-10] MEDS: Budesonide/Formoterol 160/4.5 1 PUFF INH IH SCH ×2 (08:01→19:48)
[2020-01-10] MEDS: Bisacodyl 10 MG RECTAL SUPPOSITORY RC SCH (08:47)
[2020-01-10] MEDS: Fluconazole 400 MG/200 ML 400 MG/200 ML BAG IVPB SCH (12:13)
[2020-01-11] MEDS: Ipratropium/Albuterol Neb 3 ML IH SCH ×7 (00:39→23:27)
[2020-01-11] MEDS: *HR* Heparin 5,000 UNIT/ML VIAL SQ SCH ×3 (06:01→22:04)
[2020-01-11] MEDS: Bisacodyl 10 MG RECTAL SUPPOSITORY RC SCH (07:56)
[2020-01-11] MEDS: Insulin Human Regular 100 UNIT in 0.9 % Sodium Chloride 100 ML IVC SCH (08:02)
[2020-01-11] MEDS: Budesonide/Formoterol 160/4.5 1 PUFF INH IH SCH ×2 (08:30→20:22)
[2020-01-11] MEDS: Fluconazole 400 MG/200 ML 400 MG/200 ML BAG IVPB SCH (12:48)
[2020-01-12] MEDS: Ipratropium/Albuterol Neb 3 ML IH SCH ×2 (04:08→07:50)
[2020-01-12] MEDS: *HR* Heparin 5,000 UNIT/ML VIAL SQ SCH (05:24)
[2020-01-12 07:08] VITALS: BP 129/74
[2020-01-12] MEDS: Budesonide/Formoterol 160/4.5 1 PUFF INH IH SCH (07:50)
== END 2020-01-12 12:11 | disposition other institution (70) | DRG 326 ==
LOC: SAMDAY 10:06 → ICNU 17:41 → 3NENU 01-08 15:26
PROVIDERS: ADMIT Thoracic Surgery (Cardiothoracic Vascular Surgery); ATTEND Thoracic Surgery (Cardiothoracic Vascular Surgery)